=== PATIENT | female | born 1935 | race Caucasian/White ===

== ENCOUNTER 2019-07-07 21:17 | Emergency (ER) | payer MEDICARE, OTHER ==
[2019-07-07] MEDS ORDERED: Sodium Chloride 0.9% 10 ML Syringe FLUSH PRN (21:30)
[2019-07-07] MEDS ORDERED: Oxymetazoline 0.05% Nasal Spray 30 ML Bottle NAS ONE (21:30)
[2019-07-07] MEDS ORDERED: Sodium Chloride 0.9% 500 ML IV ONE (21:55)
[2019-07-07] MEDS ORDERED: Ondansetron 4 MG/2 ML SDV IVPUSH ONE (22:07)
--- NOTE | 2019-07-07 22:07 | EDM.PDOC ---
ED HPI GENERAL MEDICAL PROBLEM - General Chief Complaint: Cardiovascular Problem Stated Complaint: AFIB AND BLOODY NOSE THAT WONT STOP Time Seen by Provider: 07/07/19 21:25 Source of Information: Reports: Patient, Family History Limitations: Reports: No Limitations - History of Present Illness INITIAL COMMENTS - FREE TEXT/NARRATIVE: patient with a history of atrial fibrillation on Coumadin presents with a spontaneous onst of a right-sided nosebleed. No recent headaches or sinus congestion or pain. Started to bleed and was uncontrolled and anytime she were to hold her nose started to drain in the back of her throat. She then also had onset of rapid heart beat or rapid palpitations. She has noted more symptoms with palpitations of the last several nights. She currently is on metoprolol and digoxin. She is taking all her medications today including her Coumadin. Her last INR was 2 which was last week. No recent adjustments made. Onset: Today, Sudden Duration: Hour(s):, Getting Worse Location: Reports: Face Quality: Reports: Same as Previous Episode Severity: Moderate Improves with: Reports: None Worsens with: Reports: None Associated Symptoms: Reports: Nausea/Vomiting. Denies: Chest Pain, Cough, Diaphoresis, Fever/Chills, Headaches, Shortness of Breath - Related Data Allergies Allergy/AdvReac Type Severity Reaction Status Date / Time codeine Allergy Indigestion Verified 07/07/19 21:29 iodine Allergy Cannot Verified 07/07/19 21:29 Remember morphine Allergy Itching Verified 07/07/19 21:29 peanut Allergy Diarrhea Verified 07/07/19 21:29 Sulfa (Sulfonamide Allergy Cannot Verified 07/07/19 21:29 Antibiotics) Remember Home Meds: Home Meds Cephalexin [Keflex] 500 mg PO BID #4 capsule 07/07/19 [Rx] ED ROS GENERAL - Review of Systems Review Of Systems: See Below Constitutional: Denies: Fever, Diaphoresis HEENT: Reports: Nosebleed. Denies: Nose Pain, Rhinitis, Sinus Problem, Throat Pain, Throat Swelling Respiratory: Denies: Shortness of Breath, Cough Cardiovascular: Reports: Palpitations. Denies: Chest Pain, Dyspnea on Exertion , Lightheadedness, Syncope GI/Abdominal: Reports: Nausea. Denies: Diarrhea, Decreased Appetite, Vomiting : Denies: Dysuria Musculoskeletal: Denies: Neck Pain Skin: Reports: No Symptoms Neurological: Reports: No Symptoms. Denies: Dizziness, Headache Psychiatric: Reports: No Symptoms Hematologic/Lymphatic: Reports: Easy Bleeding ED EXAM, GENERAL - Physical Exam Exam: See Below Exam Limited By: No Limitations General Appearance: Alert, WD/WN, Mild Distress Ears: Normal External Exam, Normal TMs Nose: Other (right sided epistaxis, some post nasal bleeding/bleeding in the back of her throat. Left side is dry.). No: Nasal Tenderness Throat/Mouth: Normal Oropharynx, Normal Voice Head: Atraumatic, Normocephalic Neck: Normal Inspection, Supple Respiratory/Chest: No Respiratory Distress, Lungs Clear, Normal Breath Sounds, No Accessory Muscle Use Cardiovascular: Normal Peripheral Pulses, Tachycardia, Irregularly Irregular Peripheral Pulses: 2+: Radial (R) GI/Abdominal: Normal Bowel Sounds, Soft, Non-Tender Extremities: Normal Inspection Neurological: Alert, Oriented Psychiatric: Normal Affect, Normal Mood, Anxious Skin Exam: Warm, Dry. No: Diaphoretic ED CARDIOLOGY PROCEDURES - Additional/Other Procedure(s) Other (Free Text) Procedure(s): epistaxis management. Patient had clots removed, Afrin nose spray placed, cautery with silver nitrate sticks without success. Placed a Rhino Rocket. Bleeding is improved/better controlled. No more postnasal bleeding. Patient tolerated the procedures well. EKG INTERPRETATION EKG Date: 07/07/19 Rhythm: A-Fib Comparison: NA - No Prior EKG (repeated her EKG at 1105 and shows atrial fibrillation rate of 93, QRS 76 QT corrected 417, still showing the same ST depression only to 3 aVF as well as L4-5 and 6. Continues to have no chest pain associated with her blood pressures improved, doubt acute coronary syndrome.) EKG Interpretation Comments: atrial fibrillation with rate of 104 QRS 74 QT corrected 366, ST depression in inferior leads, ST depression also noted in lead V3 45. Do not have any EKGs for comparison. She currently is not complaining of any chest pain or shortness of breath. Course - Vital Signs Text/Narrative:: Placed Afrin after blowing out of clots. EKG shows atrial fibrillation with a rate of 104. Sent off labs including her INR and CBC. Cauterize the area, still continued to bleed and placed the Rhino Rocket area patient tolerated fairly well. Will see if that will stop the bleeding. Last Recorded V/S: Last Vital Signs Temp 97.2 F 07/07/19 21:24 Pulse 124 H 07/07/19 21:24 Resp 19 07/07/19 21:24 BP 194/96 H 07/07/19 21:24 Pulse Ox 98 07/07/19 21:24 - Orders/Labs/Meds Orders: Active Orders 24 hr Category Date Time Status Cardiac Monitoring [RC] . DIRECTED Care 07/07/19 21:30 Active EKG Documentation Completion [RC] STAT Care 07/07/19 21:30 Active EKG Documentation Completion [RC] STAT Care 07/07/19 22:48 Active Peripheral IV Care [RC] . DIRECTED Care 07/07/19 21:31 Active Sodium Chloride 0.9% [Normal Saline] 500 ml Med 07/07/19 21:55 Active IV .BOLUS Sodium Chloride 0.9% [Saline Flush] Med 07/07/19 21:30 Active 10 ml FLUSH ASDIRECTED PRN Peripheral IV Insertion Adult [OM.PC] Stat Oth 07/07/19 21:30 Ordered Medication Orders Sodium Chloride (Normal Saline) 500 mls @ 250 mls/hr IV .BOLUS ONE Stop: 07/07/19 23:54 Last Admin: 07/07/19 22:14 Dose: 250 mls/hr Sodium Chloride (Saline Flush) 10 ml FLUSH ASDIRECTED PRN PRN Reason: Keep Vein Open Last Admin: 07/07/19 21:43 Dose: 10 ml Labs: Laboratory Tests 07/07/19 07/07/19 07/07/19 Range/Units 21:30 21:30 21:30 WBC 13.20 H (3.98-10.04) K/mm3 RBC 4.73 (3.98-5.22) M/mm3 Hgb 14.9 (11.2-15.7) gm/dl Hct 44.6 (34.1-44.9) % MCV 94.3 (79.4-94.8) fl MCH 31.5 (25.6-32.2) pg MCHC 33.4 (32.2-35.5) g/dl RDW Std Deviation 44.5 (36.4-46.3) fL Plt Count 296 (182-369) K/mm3 MPV 10.2 (9.4-12.3) fl Neutrophils % (Manual) 56 (40-60) % Band Neutrophils % 0 (0-10) % Lymphocytes % (Manual) 39 (20-40) % Atypical Lymphs % 0 % Monocytes % (Manual) 4 (2-10) % Eosinophils % (Manual) 1 (0.7-5.8) % Basophils % (Manual) 0 L (0.1-1.2) Platelet Estimate Adequate RBC Morph Comment Normal PT 29.2 H (9.7-12.0) SECONDS INR 2.84 Sodium 138 (136-145) mEq/L Potassium 4.3 (3.5-5.1) mEq/L Chloride 100 (98-107) mEq/L Carbon Dioxide 24 (21-32) mEq/L Anion Gap 18.3 H (5-15) BUN 26 H (7-18) mg/dL Creatinine 1.8 H (0.55-1.02) mg/dL Est Cr Clr Drug Dosing 20.45 mL/min Estimated GFR (MDRD) 27 (>60) mL/min BUN/Creatinine Ratio 14.4 (14-18) Glucose 159 H (83-115) mg/dL Calcium 8.3 L (8.5-10.1) mg/dL Total Bilirubin 0.5 (0.2-1.0) mg/dL AST TNP ALT TNP Alkaline Phosphatase 86 (46-116) U/L Total Protein 8.1 (6.4-8.2) g/dl Albumin 3.8 (3.4-5.0) g/dl Globulin 4.3 gm/dL Albumin/Globulin Ratio 0.9 L (1-2) Digoxin (0.9-2.0) ng/mL 07/07/19 Range/Units 21:30 WBC (3.98-10.04) K/mm3 RBC (3.98-5.22) M/mm3 Hgb (11.2-15.7) gm/dl Hct (34.1-44.9) % MCV (79.4-94.8) fl MCH (25.6-32.2) pg MCHC (32.2-35.5) g/dl RDW Std Deviation (36.4-46.3) fL Plt Count (182-369) K/mm3 MPV (9.4-12.3) fl Neutrophils % (Manual) (40-60) % Band Neutrophils % (0-10) % Lymphocytes % (Manual) (20-40) % Atypical Lymphs % % Monocytes % (Manual) (2-10) % Eosinophils % (Manual) (0.7-5.8) % Basophils % (Manual) (0.1-1.2) Platelet Estimate RBC Morph Comment PT (9.7-12.0) SECONDS INR Sodium (136-145) mEq/L Potassium (3.5-5.1) mEq/L Chloride (98-107) mEq/L Carbon Dioxide (21-32) mEq/L Anion Gap (5-15) BUN (7-18) mg/dL Creatinine (0.55-1.02) mg/dL Est Cr Clr Drug Dosing mL/min Estimated GFR (MDRD) (>60) mL/min BUN/Creatinine Ratio (14-18) Glucose (83-115) mg/dL Calcium (8.5-10.1) mg/dL Total Bilirubin (0.2-1.0) mg/dL AST ALT Alkaline Phosphatase (46-116) U/L Total Protein (6.4-8.2) g/dl Albumin (3.4-5.0) g/dl Globulin gm/dL Albumin/Globulin Ratio (1-2) Digoxin 0.8 L (0.9-2.0) ng/mL Meds: Medications Generic Name Dose Route Start Last Admin Trade Name Freq PRN Reason Stop Dose Admin Sodium Chloride 500 mls @ 250 mls/hr 07/07/19 21:55 07/07/19 22:14 Normal Saline IV 07/07/19 23:54 250 mls/hr .BOLUS ONE Administration Sodium Chloride 10 ml 07/07/19 21:30 07/07/19 21:43 Saline Flush FLUSH 10 ml ASDIRECTED PRN Administration Keep Vein Open Discontinued Medications Generic Name Dose Route Start Last Admin Trade Name Freq PRN Reason Stop Dose Admin Acetaminophen 650 mg 07/07/19 22:47 07/07/19 23:13 Tylenol PO 07/07/19 22:48 650 mg NOW ONE Administration Cephalexin 500 mg 07/07/19 22:47 07/07/19 23:13 Keflex PO 07/07/19 22:48 500 mg ONETIME ONE Administration Ondansetron HCl 4 mg 07/07/19 22:07 07/07/19 22:10 Zofran IVPUSH 07/07/19 22:08 Not Given ONETIME ONE Oxymetazoline HCl 3 ml 07/07/19 21:30 07/07/19 21:43 Nasal Decongestant [place] ANAND 07/07/19 21:31 3 ml ONETIME ONE Administration - Re-Assessments/Exams Free Text/Narrative Re-Assessment/Exam: 07/07/19 22:07 pain is down to 6 or 7 out of 10 still some nausea but no vomiting. Only has received Toradol and Zofran for now along with some IV fluids. White blood cell count is elevated to 19,000. We'll see if we get a urinalysis to make sure she has not began to get an infected stone. Free Text/Narrative Re-Assessment/Exam: 07/07/19 22:46 heart rate is stabilizing now under 100 still atrial fibrillation, she is feeling more comfortable. No chest pain, no shortness of breath, no current active bleeding from the front or the back of the nose. No postnasal bleeding. We'll treat her with Keflex twice a day for prevention against a sinus infection /toxic shock, hydrate, history of underlying renal dysfunction, pulmonary disease, she has a physician assistant secretary in the community where she lives but otherwise has to go to [place] to see the kidney specialist and the stock layer and has to go to [facility] for her cardiac care. Free Text/Narrative Re-Assessment/Exam: 07/07/19 23:18 patient continues to do well, heart rate is rate controlled. Repeat EKG shows the persistent change of the ST depression suspect this is chronic and old, notes associated chest pain. Her blood pressures stable. Have made sure that she follow-up with her network controller in [place] as well as her kidney specialist in [place] and have the nose balloon removed on Tuesday, return precautions given. Monitor her blood pressure Departure - Departure Time of Disposition: 23:16 Disposition: Home, Self-Care 01 Reason for Transfer *Q: Primary PCI Indicated Clinical Impression: Atrial fibrillation with rapid ventricular response, Anterior epistaxis Prescriptions: Cephalexin [Keflex] 500 mg PO BID #4 capsule Instructions: Nosebleed, [id number], Atrial Fibrillation, [id number] Referrals: PCP,Not In Area [Primary Care Provider] - Forms: ED Department Discharge Additional Instructions: leave packing in for 48-72 hours. Follow up in the emergency department or primary care office for packing removal. Take antibiotics as directed while the nose is packed to prevent sinus infection. Return if recurrent nose bleeding, lightheadedness, dizziness, chest pain, shortness breath, worsening palpitations, uncontrolled bleeding make sure you follow up with your kidney specialist, network controller in regards to your atrial fibrillation - My Orders Last 24 Hours: My Active Orders 07/07/19 21:30 Cardiac Monitoring [RC] . DIRECTED EKG Documentation Completion [RC] STAT Sodium Chloride 0.9% [Saline Flush] 10 ml FLUSH ASDIRECTED PRN Peripheral IV Insertion Adult [OM.PC] Stat 07/07/19 21:31 Peripheral IV Care [RC] . DIRECTED 07/07/19 21:55 Sodium Chloride 0.9% [Normal Saline] 500 ml IV .BOLUS 07/07/19 22:48 EKG Documentation Completion [RC] STAT - Assessment/Plan Last 24 Hours: My Active Orders 07/07/19 21:30 Cardiac Monitoring [RC] . DIRECTED EKG Documentation Completion [RC] STAT Sodium Chloride 0.9% [Saline Flush] 10 ml FLUSH ASDIRECTED PRN Peripheral IV Insertion Adult [OM.PC] Stat 07/07/19 21:31 Peripheral IV Care [RC] . DIRECTED 07/07/19 21:55 Sodium Chloride 0.9% [Normal Saline] 500 ml IV .BOLUS 07/07/19 22:48 EKG Documentation Completion [RC] STAT
[2019-07-07] MEDS ORDERED: Acetaminophen 325 MG Tab PO ONE (22:47)
[2019-07-07] MEDS ORDERED: Cephalexin 500 MG Cap PO ONE (22:47)
== END 2019-07-07 23:35 | disposition home or self-care (01) ==
LOC: JD.ED 21:17
DX: R04.0 Epistaxis (principal); I48.91 Unspecified atrial fibrillation; Z88.5 Allergy status to narcotic agent; Z88.8 Allergy status to other drugs, medicaments and biological substances; Z88.2 Allergy status to sulfonamides
CPT/HCPCS: 30903; 36415; 80053; 80162; 85007; 85027; 85610; 93005; 96360; 99285; A9270; J7040; 30901; 93010; 99284